=== PATIENT | male | born 1985 | race American Indian/Alaskan Native ===

== ENCOUNTER 2017-09-10 20:08 | Emergency (ER) | payer SELFPAY ==
[2017-09-10 20:30] VITALS: TEMP 97.6
[2017-09-10 21:09] LABS: URINE BILIRUBIN NEGATIVE (NEGATIVE); URINE BLOOD NEGATIVE (NEGATIVE); URINE CLARITY Clear (Clear); URINE COLOR Colorless (YELLOW); URINE GLUCOSE (UA) NORMAL (Normal); URINE LEUKOCYTE ESTERASE NEG Leu/uL (Negative); URINE NITRATE NEGATIVE (NEGATIVE); URINE PROTEIN NEGATIVE (NEGATIVE); URINE UROBILINOGEN NORMAL mg/dL (0.2-1.0)
--- NOTE | 2017-09-10 21:22 | C.PDOC ---
History Of Present Illness 31 year old male presents to the ER with a complaint of polyuria. Patient states he drinks excessive free water daily because he believes it is good for him. 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 Denies abdominal pain or other complaints. Time Seen by Provider: 09/10/17 20:30 Chief Complaint (Nursing): Male Genitourinary History Per: Patient History/Exam Limitations: no limitations Onset/Duration Of Symptoms: Days Current Symptoms Are (Timing): Still Present Quality Of Discomfort: Unable To Describe Associated Symptoms: Urinary Symptoms (Polyuria) Alleviating Factors: None Recent travel outside of the [place]: No Past Medical History Reviewed: Historical Data, Nursing Documentation, Vital Signs Vital Signs: Last Vital Signs Temp 97.6 F 09/10/17 20:21 Pulse 88 09/10/17 21:40 Resp 20 09/10/17 21:40 BP 128/70 09/10/17 21:40 Pulse Ox 100 09/10/17 21:40 Family History: States: Unknown Family Hx - Social History Hx Alcohol Use: Yes Hx Substance Use: No - Immunization History Hx Tetanus Toxoid Vaccination: No Hx Influenza Vaccination: No Hx Pneumococcal Vaccination: No Review Of Systems Constitutional: Negative for: Fever, Chills Gastrointestinal: Negative for: Abdominal Pain Genitourinary: Positive for: Other (Polyuria). Negative for: Dysuria, Hematuria , Penile Pain Musculoskeletal: Negative for: Back Pain Physical Exam - Physical Exam Appears: Non-toxic, No Acute Distress, Other (Small, athletic, thin black male) Skin: Normal Color, Warm, Dry Head: Atraumatic, Normacephalic Eye(s): bilateral: Normal Inspection Oral Mucosa: Moist Neck: Normal, Supple Chest: Symmetrical, No Tenderness Cardiovascular: Rhythm Regular Respiratory: Normal Breath Sounds, No Rales, No Rhonchi, No Wheezing Gastrointestinal/Abdominal: Soft, No Tenderness Back: No CVA Tenderness Neurological/Psych: Oriented x3, Normal Speech ED Course And Treatment O2 Sat by Pulse Oximetry: 98 (Room air) Pulse Ox Interpretation: Normal Progress Note: urinalysis Medical Decision Making 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 Drink only 2-3 pints of water/day EXTRA, beyond your normal meals intake. Follow-up w Dr. Lam as needed. Forms: General Discharge Instructions, [facility] (Pashto) - Clinical Impression Clinical Impression: Polyuria - Scribe Statement The provider has reviewed the documentation as recorded by the Scribe Odin Bella All medical record entries made by the Scribe were at my direction and personally dictated by me. I have reviewed the chart and agree that the record accurately reflects my personal performance of the history, physical exam, medical decision making, and the department course for this patient. I have also personally directed, reviewed, and agree with the discharge instructions and disposition.
[2017-09-10 21:41] VITALS: BP 128/70; PULSE 88; RESP 20
[2017-09-11 00:30] VITALS: O2SAT 98
== END 2017-09-10 21:40 | disposition home or self-care (01) ==
LOC: C.ER 20:08
DX: R35.8 Other polyuria (principal)